=== PATIENT | female | born 1970 | race Caucasian/White ===

== ENCOUNTER 2021-12-14 08:08 | Emergency (ER) | payer OTHER ==
[~2021-12-14] VITALS: Ht 167.6 cm; Wt 90.7 kg
[2021-12-14 08:14] VITALS: BP_SYST 129
--- NOTE | 2021-12-14 08:15 | NUR ---
Patient to ER bed 4 to gown for evaluation. Side rails up. Report given to SHELLIE LOVE.
--- NOTE | 2021-12-14 08:20 | NUR ---
Dr. Mayur bhakta to assess.
--- NOTE | 2021-12-14 08:20 | NUR ---
ASSUMED CARE OF PT AT THIS TIME. PT ROOMED TO BED 4. PT REPORTS MID STERNAL CHEST PAIN X1 HR, NON PROVOKED. PT DESCRIBES PAIN AT SHARP, SQUEEZING, DULL, INTERMITTENT 6/10. PT STATES SHE TOOK AN ATIVAN AND NORCO FOR PAIN. REPORTS ASSOCIATED SOB AND DIZZINESS. DENIES PALPITATIONS, WEAKNESS, VISUAL CHANGES. RESP EVEN AND UNLABORED. WILL CONT TO MONITOR
[2021-12-14] MEDS ORDERED: ASPIRIN 81 MG TAB.CHEW PO ONE (08:30)
[2021-12-14 08:54] LABS: ANION GAP 11 (5-15); CHLORIDE 102 mmol/L (98-107); CREATININE 1.08 mg/dL (0.55-1.30); GLUCOSE 127 mg/dL (70-99); POTASSIUM 3.3 mmol/L (3.5-5.1); SODIUM SERUM 137 mmol/L (136-145); UREA NITROGEN, BLOOD 22 mg/dL (8-21)
[2021-12-14 08:59] LABS: BASOPHILS % (AUTO) 0.4 % (0.0-2.0); EOSINOPHILS # (AUTO) 0.2 K/uL (0.0-0.4); EOSINOPHILS % (AUTO) 3.4 % (0.0-4.0); HEMATOCRIT 29.8 % (36-48); HEMOGLOBIN 9.8 g/dL (12.0-16.0); LYMPHOCYTES # (AUTO) 2.5 K/uL (1.0-5.5); LYMPHOCYTES % (AUTO) 36.6 % (20.5-51.5); MEAN CORPUSCULAR HEMOGLOBIN 25 pg (27-31); MEAN CORPUSCULAR HGB CONC 33 % (32-36); MEAN CORPUSCULAR VOLUME 77 fL (79.0-98.0); MONOCYTES # (AUTO) 0.7 K/uL (0.0-1.0); MONOCYTES % (AUTO) 10.4 % (1.7-9.3); NEUTROPHILS # (AUTO) 3.4 K/uL (1.8-7.7); NEUTROPHILS % (AUTO) 49.2 % (40.0-70.0); PLATELET COUNT (AUTO) 248 K/uL (130-430); RED BLOOD CELL COUNT(AUTO) 3.87 MIL/uL (4.2-6.2); RED CELL DISTRIBUTION WIDTH 16.9 % (9.0-15.0); WHITE BLOOD COUNT (AUTO) 6.9 K/uL (4.8-10.8)
[2021-12-14 09:00] LABS: GFR AFRICAN AMERICAN 69 mL/min (>90)
[2021-12-14 09:05] LABS: ALANINE AMINOTRANSFERASE 17 U/L (12-78); ALBUMIN 3.6 g/dL (3.4-4.8); ASPARTATE AMINOTRANSFERASE 15 U/L (10-37); TOTAL BILIRUBIN 0.1 mg/dL (0.0-1.0)
[2021-12-14 10:10] VITALS: BP_SYST 104
--- NOTE | 2021-12-14 10:10 | NUR ---
Patient given written and verbal discharge instructions and verbalizes understanding. Dr. Mayur WORTHY MD discussed with patient the results and treatment provided. Patient in stable condition. ID arm band removed. Patient educated on pain management and to follow up with PMD. Pain Scale 0/10. Opportunity for questions provided and answered.
== END 2021-12-14 10:10 | disposition home or self-care (01) ==
LOC: SED 08:08
DX: R07.2 Precordial pain (principal); I10 Essential (primary) hypertension
CPT/HCPCS: 36415; 71045; 80053; 84484; 85025; 93005; 99285